=== PATIENT | female | born 1960 | race Caucasian/White ===

== ENCOUNTER 2020-11-10 09:14 | Outpatient (CLI) | payer BC ==
--- NOTE | 2020-11-11 15:04 | Mammography Report ---
BILATERAL DIGITAL SCREENING MAMMOGRAM 3D/2D: 11/10/2020 CLINICAL: Baseline exam. Routine screening. No prior exams were available for comparison. The tissue of both breasts is predominantly fatty. No significant masses, calcifications, or other findings are seen in either breast. IMPRESSION: NEGATIVE There is no mammographic evidence of malignancy. A 1 year screening mammogram is recommended. This exam was interpreted at Station ID: [id number]. NOTE: For mammograms, a report in lay terms will be sent to the patient. Approximately 15% of breast malignancies will not be visualized mammographically. In the management of a palpable breast mass, a negative mammogram must not discourage biopsy of a clinically suspicious lesion. Electronically Signed By: Myron Humphrey M.D., jr/corry:11/10/2020 09:59:07 ACR BI-RADS Category 1: Negative 3341F PARENCHYMAL PATTERN: (F) - The breast(s) demonstrate(s) diffuse fatty replacement. BI-RADS CATEGORY: (1) - 1 RECOMMENDATION: (ANNUAL) - Recommend routine annual screening mammography. [id number] 1 year screening LATERALITY: (B)
== END 2020-11-10 09:15 | disposition home or self-care (01) ==
LOC: DI 09:14
PROVIDERS: ATTEND Nurse Practitioner Family
DX: Z12.31 Encounter for screening mammogram for malignant neoplasm of breast (principal)

== ENCOUNTER 2020-11-10 09:18 | Outpatient (CLI) | payer BC ==
--- NOTE | 2020-11-10 14:02 | DEXA Report ---
PROCEDURE: Dexa Spine and/or Hip INDICATIONS: OSTEOPOROSIS TECHNIQUE: Dual energy x-ray absorptiometry (DXA) was performed on a [employer] System. Regions measur ed are the AP Spine, femoral neck, and if needed forearm. COMPARISON: None. FINDINGS: Lumbar Spine: Bone Mineral Density 1.00 to g/cm/cm,T score -1.5, osteopenia Left Hip: Bone Mineral Density 0.855 g/cm/cm,T score -1.2, osteopenia Left Femoral Neck: Bone Mineral Density 0.749 g/cm/cm, T score 2.1, osteopenia (T score greater or equal to -1.0: NORMAL) (T score from -1.1 to -2.4: OSTEOPENIA) (T score less than or equal to -2.5 to: OSTEOPOROSIS) Impression: Bone mineral density consistent with osteopenia. Patients with diagnosis of osteoporosis or osteopenia should have regular bone mineral density assess ment. For those eligible for Medicare, routine testing is allowed once every 2 years. Testing frequ ency can be increased for patients who have rapidly progressing disease or for those who are receivin g medical therapy to restore bone mass. Reviewed by: Bolivar Borjas on 11/10/2020 2:01 PM PDT Approved by: Bolivar Borjas on 11/10/2020 2:01 PM PDT Station ID: [id number]
== END 2020-11-10 09:19 | disposition home or self-care (01) ==
LOC: DI 09:18
PROVIDERS: ATTEND Nurse Practitioner Family
DX: M85.89 Other specified disorders of bone density and structure, multiple sites (principal)

== ENCOUNTER 2020-12-08 10:53 | Outpatient (CLI) | payer BC | END 2020-12-08 10:54 | disposition home or self-care (01) | LOC: DI 10:53 | PROVIDERS: ATTEND Nurse Practitioner Family | DX: R01.1 Cardiac murmur, unspecified (principal) | CPT/HCPCS: 93306 ==

== ENCOUNTER 2022-02-18 09:23 | Day surgery (SDC) | payer BC ==
--- NOTE | 2022-02-18 08:40 | ANESTHESIA ---
Pre-Anesthesia VS, & Labs - Diagnosis screening - Procedure colonoscopy - NPO >8 hours - Is Patient ?: No - Lab Results Lab results reviewed: Yes Home Medications and Allergies Home Medications: Ambulatory Orders Chlorthalidone 1 tab ORAL DAILY 02/17/22 Fluoxetine HCl [Prozac] 20 mg PO DAILY 02/17/22 Multivitamin 1 each PO DAILY 02/17/22 Chlorthalidone 1 tab ORAL DAILY 02/17/22 Fluoxetine HCl [Prozac] 20 mg PO DAILY 02/17/22 Multivitamin 1 each PO DAILY 02/17/22 Allergies/Adverse Reactions: Allergies Allergy/AdvReac Type Severity Reaction Status Date / Time No Known Drug Allergies Allergy Verified 02/17/22 13:04 Anes History & Medical History - Anesthetic History Anesthesia Complications: reports: No previous complications Family history of Anesthesia Complications: Denies Family history of Malignant Hyperthermia: Denies - Medical History Cardiovascular: reports: Hypertension, High cholesterol, Murmur Pulmonary: reports: Pneumonia Gastrointestinal: reports: None Urinary: reports: None Musculoskeletal: reports: None Endocrine/Autoimmune: reports: None History of Cancer?: No - Surgical History Gynecologic: reports: Other Orthopedic: reports: Rotator cuff repair, Spine surgery Exam General: Alert, Oriented x3, Cooperative Dental: WNL Mouth Openin Fingerbreadth Neck Mobility: Normal Mallampati classification: II Thyromental Distance: 4-6 cm Respiratory: Lungs clear, Normal breath sounds, No respiratory distress Cardiovascular: Regular rate Neurological: Normal speech Mental/Cognitive Status: Alert/Oriented X3, Normal for patient Cognitive Status: Within normal limits Plan Anesthesia Type: Total IV Consent for Procedure(s) Verified and Reviewed: Yes Code Status: Attempt Resuscitation ASA classification: 2-Mild systemic disease Is this case an emergency?: No
[~2022-02-18 09:23] MED LIST: MIDAZOLAM 2 MG/2 ML VIAL ONE; PROPOFOL 200 MG/20 ML VIAL IVP ONE
[2022-02-18] MEDS ORDERED: LACTATED RINGERS 1,000 ML IV ONE ×2 (09:25→10:45)
[2022-02-18] MEDS ORDERED: SIMETHICONE 40 MG/0.6 ML 30 ML BOTTLE ONE (10:49)
--- NOTE | 2022-02-18 10:58 | ANESTHESIA POST OP EVALUATION ---
Anesthesia Post Eval - Post Anesthesia Eval Vitals: Last Vital Signs Temp 36.3 C L 02/18/22 10:45 Pulse 64 02/18/22 10:50 Resp 14 02/18/22 10:50 BP 134/77 H 02/18/22 10:50 Pulse Ox 99 02/18/22 10:50 O2 Flow Rate CV Function Including HR & BP: Stable Pain Control: Satisfactory Nausea & Vomiting: Negative Mental Status: Baseline Respiratory Status: Airway Patent Hydration Status: Satisfactory Anesthesia Complications: None
[2022-02-18 11:12] VITALS: BP 132/62
== END 2022-02-18 09:24 | disposition home or self-care (01) ==
LOC: SDS 09:23
PROVIDERS: ATTEND Surgery
DX: Z12.11 Encounter for screening for malignant neoplasm of colon (principal); I10 Essential (primary) hypertension
CPT/HCPCS: 45378; A9270; J7120